=== PATIENT | male | born 1965 | race Caucasian/White ===

== ENCOUNTER 2023-08-09 21:26 | Emergency (ER) | payer BC, SELFPAY ==
[2023-08-09 21:29] VITALS: BP 173/96
[2023-08-09 21:44] LABS: Urine Albumin Negative (Neg - Trace); Urine Bilirubin Negative (Negative); Urine Character Clear (Clear); Urine Color Yellow; Urine Glucose Negative (Negative); Urine Ketone Trace (Negative); Urine Leukocyte Negative (Negative); Urine Nitrite Negative (Negative); Urine Occult Blood 1+ (Negative); Urine Urobilinogen Negative (Neg - 1+)
[2023-08-09 21:51] LABS: Urine Squamous Cell 0-2 /LPF (Few)
[2023-08-09 21:52] LABS: Urine Bacteria Few (Negative); Urine White Cell 0-2 /HPF (0-5)
[2023-08-09 22:22] LABS: % Basophils 0.7 % (0-2); % Eosinophils 2.2 % (0-6); % Immature Granulocytes 0.3 % (0-0.5); % Lymphocytes 25.8 % (20.5-51.1); % Monocytes 7.2 % (1.7-9.3); % Neutrophils 63.8 % (42.2-75.2); Absolute Basophils 0.1 10^3/uL (0-0.2); Absolute Eosinophils 0.2 10^3/uL (0-0.7); Absolute Lymphocytes 2.3 10^3/uL (1.2-3.4); Absolute Monocytes 0.7 10^3/uL (0.1-0.6); Absolute Neutrophils 5.7 10^3/uL (1.4-6.5); Hematocrit 39.3 % (39.0-52.0); Hemoglobin 13.6 g/dL (13.0-18.0); Mean Corp Hgb Conc. 34.6 g/dL (33.0-37.0); Mean Corpuscular Hgb 29.3 pg (27.0-31.0); Mean Corpuscular Volume 84.7 fL (80.0-94.0); Mean Platelet Volume 10.8 fL (7.4-10.4); Nucleated Red Blood Cells % 0 % (-); Platelet Count 246 10^3/uL (130-400); Red Blood Cell Count 4.64 10^6/uL (4.70-6.10); Red Cell Dist. Width 12.8 % (11.5-14.5)
--- NOTE | 2023-08-09 22:30 | ED.GENMED ---
History of Present Illness
General
Chief Complaint: Male Genito-Urinary Symptoms
Source: patient
Exam Limitations: none
Time Seen by Provider: 08/09/23 21:55
Nursing documentation reviewed up to this point in time: agreed with
Travel History
Have you had any contact with someone who has COVID-19?: No
Do you have any symptoms of coronavirus? Fever > 100 degrees, chills, cough, shortness of breath, sore throat, loss of taste or smell, muscle aches, or headache?: No
History of Present Illness
History of Present Illness:
58-year-old male with a past medical history of hypertension, hyperlipidemia, prostate cancer status post resection who presents to the emergency department for evaluation of dysuria and hematuria. Patient reports onset of symptoms yesterday
evening he says he noticed some slight pain with urination�some slight pressure/burning at the tip of the penis during urination. He says that today symptoms a bit more pronounced and he noticed some slight hematuria as well. He says he has had
similar symptoms with UTI in the past and so he came to the emergency room for assessment. He denies any abdominal pain. He says he has had chronic right flank pain that he was told was musculoskeletal�he is unsure if it has been worse recently.
He has not had any fevers or chills. He denies any penile discharge. Denies any testicular pain or swelling. He is sexually active and monogamous.
Past History
Past History
ED Past Medical History: None
ED Past Surgical History: None
Social History
Tobacco: Non-smoker
Alcohol: Occasional
Drug: None
Personal:
Living: with family
Employment: Employed
Review of Systems
Review of Systems
All Other Systems: ROS reviewed and negative except as documented in HPI and ROS
Constitutional: Denies fever or chills
EENT: Denies sore throat or runny nose
Respiratory: Denies cough or trouble breathing
Cardiac: Denies chest pain
ABD/GI: Denies abdominal pain, nausea or vomiting
: Reports dysuria, flank pain (Chronic) and bleeding; Denies frequency or discharge
Musculoskeletal: Denies neck pain or back pain
Neurological: Denies headache
Phy Exam
Physical Exam
Physical Exam:
General: Awake, alert; resting comfortably in bed, no acute distress
Head: Normocephalic, atraumatic
Eyes: Conjunctiva normal, sclera anicteric
Throat: Airway intact, handling secretions
Neck: Trachea midline, supple without meningismus
Lungs: Breathing comfortably, no acute distress
Heart: Regular rate
Abd: Soft, non distended, nontender
Back: No CVA tenderness
: No blood or discharge noted at the urethral meatus; no tears or lesions noted on penis, no scrotal swelling
Neuro: Cranial nerves grossly intact, speech fluid
Skin: no rash
Extremities: Warm and well-perfused
Scores
Heart Failure Risk
Heart Failure Risk Score: Not Applicable
Heart Score for Chest Pain Patients
STEMI patient?: Not applicable
Withdrawal Assessment of Alcohol
Withdrawal Assessment Completed?: Not applicable
Course
Orders/Labs/Results
Orders:
Orders
08/09/23 21:33
Urinalysis Reflex To Culture Urgent
Date Specimen was Collected: 08/09/23
Time Specimen was Collected: 21:32
Urine Microscopic Reflex Cult Urgent
08/09/23 22:05
CT Abd/pel Without Iv Or Oral Urgent
Comment:
Reason For Exam: flank pain, hematuria
08/09/23 22:17
Complete Blood Count/With Diff Urgent
Comprehensive Metabolic Panel Urgent
08/10/23 00:24
CefTRIAXone [Rocephin] 1,000 mg IV NOW STA
Abnormal Lab Results
08/09/23 08/09/23
21:33 22:17
RBC 4.64 L 10^6/uL
(4.70-6.10)
MPV 10.8 H fL
(7.4-10.4)
Absolute Monos (auto) 0.7 H 10^3/uL
(0.1-0.6)
Chloride 108 H mmol/L
(98-107)
BUN 22 H mg/dl
(9-20)
Urine Ketones Trace A
(Negative)
Ur Occult Blood Reflex 1+ A
(Negative)
Urine RBC 7-10 A /HPF
(0-2)
Urine Bacteria (Reflex) Few A
(Negative)
08/09/23 22:17
08/09/23 22:17
Vital Signs
Initial and Last Documented VS:
Initial Vital Signs
Temp Pulse Resp BP Pulse Ox
36.7 C 92 18 173/96 96
08/09/23 21:29 08/09/23 21:29 08/09/23 21:29 08/09/23 21:29 08/09/23 21:29
Last Documented Vital Signs
Temp Pulse Resp BP Pulse Ox
36.8 C 80 20 161/80 98
08/10/23 00:12 08/10/23 00:12 08/10/23 00:12 08/10/23 00:12 08/10/23 00:12
MDM/Problems Addressed
Differential Diagnosis Includes:
Urethritis, cystitis, nephrolithiasis
MDM/Problems Addressed:
58-year-old male presents for evaluation of dysuria and hematuria over the past 24 hours. He says similar to prior UTIs. He is sexually active and monogamous relationship. He has had some chronic right flank pain he is told is musculoskeletal
after prior workup--he is not really sure if is any worse. He is hypertensive but has otherwise normal vitals. Will plan to check labs, urinalysis, CT to rule out stone.
Urinalysis shows positive blood, few bacteria, few squamous cells�low suspicion that he has cystitis but certainly this could be urethritis (urine sample today obviously not a first catch and symptoms are consistent with urethritis). His labs
including renal function are unremarkable. Awaiting results of CT. Suspect can likely be discharged on antibiotics to treat urethritis/UTI. Low concern for STDs in this patient who is in a reportedly monogamous relationship with no significant
discharge. Will cover for enteric pathogens.
CT shows no kidney stones or other acute pathology. Plan to discharge with antibiotics as above. Urine culture sent. Patient comfortable with this. Spoke about return precautions all questions answered.
Acute Exacerbation and/or Progression of Chronic Illness:
Acutely hypertensive
*Radiology
Radiology exam reviewed: radiology read reviewed
*Pulse Oximetry
Patient hypoxic: no
*Critical Care Note
Total Time (30-74mins, 75-104mins- exclusive of procedures): Not Applicable
Data Reviewed
Source: patient
ED Attending Note
-
Portions of this chart may have been created with voice recognition software.� Occasional wrong word or��sound alike� substitutions may have occurred due to the inherent limitations of voice recognition software.
Discharge Plan
Departure
Patient Disposition: Home (Routine Discharge)
Date of Disposition: 08/10/23
Time of Disposition: 00:39
Patient with high blood pressure during this ER visit?: Yes
Discharge Problem:
Acute UTI
Instructions: Urinary Tract Infection, Adult ED
Prescriptions:
New
cefdinir 300 mg capsule
300 mg PO BID Qty: 14 0RF
No Action
naproxen sodium [Aleve] 220 MG tablet
440 mg PO BID Qty: 1 0RF
tramadol 50 MG tablet
50 mg PO TIDPRN PRN (Reason: severe pain) Qty: 10 0RF
Referrals:
Alphonse Cardona MD [Family Provider] - Call in 1-3 days for appt
Activity Restrictions/Additional Instructions:
Thank you for visiting the Emergency Department at [facility].
1. Please schedule a follow up appointment as directed. Call first thing tomorrow morning to make an appointment.
2. If indicated, please take your medications as instructed and indicated on discharge paperwork.
3. If any of your symptoms do not improve, or persist, or become more severe within 6-12 hours, please return to the emergency department for further care.
4. Please return to the emergency department if you develop a headache, neck pain/stiffness, fever greater than 100.4F, chest pain, shortness of breath, persistent nausea, vomiting, slurred speech, difficulty walking, numbness/tingling, weakness,
signs of infection or any other symptoms that are worrisome to you.
Please call [phone] if you have any questions.
Interventions
Interventions:
*Risk Screen - Suicide Last Done: 08/09/23 21:29
*General Assessment Last Done: 08/09/23 21:29
*Neglect/Abuse Screening Last Done: 08/09/23 21:29
ED-Male Genitourinary Assessment Last Done: 08/09/23 22:19
[2023-08-09 22:41] LABS: ALT (SGPT) 21 U/L (0-50); AST (SGOT) 22 U/L (17-59); Alkaline Phosphatase 68 U/L (38-126); Blood Urea Nitrogen 22 mg/dl (9-20); Carbon Dioxide 24 mmol/L (22-30); Chloride 108 mmol/L (98-107); Glucose 93 mg/dl (70-99); Potassium 4.4 mmol/L (3.5-5.1); Sodium 135 mmol/L (135-145); Total Bilirubin 0.9 mg/dl (0.2-1.3); Total Protein 6.5 g/dl (6.3-8.2); eGFR > 60.00
[2023-08-10 00:12] VITALS: BP 161/80
[2023-08-10] MEDS: ROCEPHIN 1000 MG IV (00:48)
== END 2023-08-10 00:58 | disposition home or self-care (01) ==
LOC: EMR 21:26
PROVIDERS: Emergency Medicine; EMERGENCY PHYSICIAN Emergency Medicine; FAMILY PHYSICIAN Family Medicine
DX: R30.0 Dysuria (principal); R31.9 Hematuria, unspecified; I10 Essential (primary) hypertension; E78.5 Hyperlipidemia, unspecified; Z85.46 Personal history of malignant neoplasm of prostate; Z87.440 Personal history of urinary (tract) infections; N39.0 Urinary tract infection, site not specified
CPT/HCPCS: 99284; 96374; 74176; 80053; 81003; 81015; 85025

== ENCOUNTER → 2023-10-10 06:29 | Day surgery (SDC) | payer BC, SELFPAY | LOC: GI 06:29 | PROVIDERS: ATTENDING PHYSICIAN Internal Medicine | DX: Z12.11 Encounter for screening for malignant neoplasm of colon (principal); Z90.79 Acquired absence of other genital organ(s); D12.3 Benign neoplasm of transverse colon; K63.5 Polyp of colon | CPT/HCPCS: 45385; 45380; 88305 ==